=== PATIENT | female | born 2000 | race Caucasian/White ===

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

== ENCOUNTER 2019-06-01 22:53 | Inpatient (IN) | payer MEDICAID ==
[2019-06-01 23:35] LABS: APPEARANCE,URINE SLIGHTLY-CLOUDY; BILIRUBIN,URINE NEGATIVE (NEGATIVE); COLOR,URINE STRAW; GLUCOSE, URINE 50 mg/dL (NEGATIVE); KETONES,URINE NEGATIVE (NEGATIVE); LEUKOCYTE ESTERASE,URINE NEGATIVE (NEGATIVE); NITRITE,URINE NEGATIVE (NEGATIVE); PROTEIN,URINE NEGATIVE (NEGATIVE); URINE SPECIFIC GRAVITY 1.004; UROBILINOGEN,URINE NEGATIVE mg/dL (<2.0)
[2019-06-01 23:58] LABS: URINE AMPHETAMINES SCREEN NEGATIVE; URINE BARBITURATES SCREEN NEGATIVE; URINE BENZODIAZEPINES SCREEN NEGATIVE; URINE COCAINE SCREEN NEGATIVE; URINE MARIJUANA (THC) SCREEN NEGATIVE; URINE METHADONE SCREEN NEGATIVE; URINE PHENCYCLIDINE SCREEN NEGATIVE
[2019-06-02] MEDS ORDERED: MISOPROSTOL 0.2 MG TABLET ONE (01:52)
[2019-06-02] MEDS ORDERED: OXYTOCIN 10 UNIT/ML VIAL ONE (01:52)
[2019-06-02] MEDS ORDERED: LIDOCAINE 1% INJ-PF (10 MG/ML) 30 ML SDV ONE (01:52)
[2019-06-02] MEDS ORDERED: OXYTOCIN/NORMAL SALINE 20 UNIT/1,000 ML RTUINJ ONE (01:52)
[2019-06-02] MEDS ORDERED: PENICILLIN G-K 5 MILLION UNIT VIAL ONE (01:53)
[2019-06-02] MEDS ORDERED: RINGERS SOLUTION,LACTATED 1,000 ML IV PRN (01:56)
[2019-06-02] MEDS ORDERED: PENICILLIN G POTASSIUM 5,000,000 UNIT in DEXTROSE 5%-WATER 100 ML IV ONE (02:00)
[2019-06-02] MEDS ORDERED: PROMETHAZINE HCL INJ 25 MG/1 ML VIAL ONE (02:10)
[2019-06-02] MEDS ORDERED: NALBUPHINE HCL INJ 10 MG/1 ML AMPULE ONE (02:10)
[2019-06-02 02:20] LABS: ABSOLUTE BASOPHILS # (AUTO) 0.1 10^3/uL (0.0-0.2); ABSOLUTE EOSINOPHILS # (AUTO) 0.1 10^3/uL (0.0-0.6); ABSOLUTE LYMPHOCYTES (AUTO) 2.5 10^3/uL (0.5-4.7); ABSOLUTE MONOCYTES (AUTO) 1.3 10^3/uL (0.1-1.4); ABSOLUTE NEUT (AUTO) 15.2 10^3/uL (1.7-8.2); BASOPHILS % (AUTO) 0.3 % (0-2); EOSINOPHILS % (AUTO) 0.5 % (0-6); HEMATOCRIT 28.7 % (36.0-47.0); LYMPHOCYTES % (AUTO) 13.1 % (13-45); MEAN CORPUSCULAR HGB CONC 31.2 g/dL (32.0-36.0); MEAN CORPUSCULAR VOLUME 70 fl (80-97); MONOCYTES % (AUTO) 6.8 % (3-13); PLATELET COUNT 390 10^3/uL (150-450); RED BLOOD COUNT 4.09 10^6/uL (3.72-5.28); RED CELL DISTRIBUTION WIDTH 20.4 % (11.5-14.0); SEGMENTED NEUTROPHILS % (AUTO) 79.3 % (42-78); TOTAL CELLS COUNTED % (AUTO) 100 %; WHITE BLOOD COUNT 19.2 10^3/uL (4.0-10.5)
[2019-06-02] MEDS ORDERED: NALBUPHINE HCL INJ 10 MG/1 ML AMPULE INJ ONE (03:00)
[2019-06-02] MEDS ORDERED: PROMETHAZINE HCL INJ 25 MG/1 ML VIAL IV ONE (03:00)
--- NOTE | 2019-06-02 03:50 | Admission Physical ---
Datetime Report Generated by CPN: 06/02/2019 03:49 CURRENT ADMISSION Chief Complaint: Uterine Contractions Indication for Induction: Not Applicable Admit Impression : Term, Intrauterine ; Active Labor Admit Plan: Admit to Unit; Initiate Labor Protocol ALLERGIES Medication Allergies: No Medication Allergies: No Known Allergies (06/01/2019) Latex: No Latex Allergies Food Allergies: none Environmental Allergies: none OBSTETRICAL HISTORY EDC: 06/03/2019 00:00 : 1 Para: 0 Gestational Diabetes: No Rh Sensitization: No Incompetent Cervix: No JEAN: No Infertility: No ART Treatment: No Uterine Anomaly: No IUGR: No Hx Previous C/S: No Macrosomia: No Hx Loss/Stillborn: No PIH: No Hx : No Placenta Previa/Abruption: No Depression/PP Depression: No PTL/PROM: No Post Hemorrhage: No Obstetrical History Comments: G1- current SEE RECORDS Alcohol: No Marijuana : No Cocaine: No Other Illicit Drugs: No Cigarettes: Former Smoker. 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 Heart Disease: No Hosp/Surgery: No Autoimmune Disorder: No Anesthetic Complications: No Kidney Disease: No Abnormal Pap Smear: No Neuro/Epilepsy: No Psychiatric Disorders: No Other Medical Diseases: No Hepatitis/Liver Disease: No Significant Family History: No Varicosities/Phlebitis: No Trauma/Violence : No Thyroid Dysfunction: No Medical History Comments: wisdom teeth (2014) INFECTIOUS HISTORY Gonorrhea: No Genital Herpes: No Chlamydia: No Tuberculosis: No Syphilis: No Hepatitis: No HIV/AIDS Exposure: No Rash or Viral Illness: No HPV: No PHYSICAL EXAM General: Normal HEENT: Normal Neurologic: Normal Thyroid: Normal Heart: Normal Lungs: Normal Breast: Normal Back: Normal Abdomen: Normal Genitourinary Exam: Normal Extremities: Normal DTRs: Normal Pelvic Type: Adequate Vital Signs: Reviewed; Within Normal Limits VAGINAL EXAM Dilatation: 3 Effacement: 75 Station: -3 Contraction Comments: irregular MEMBRANES Membranes: Intact FETUS A EGA: 39.6 Monitoring: External US FHR- Baseline: 120s Variability: Moderate 6-25bpm Accelerations: 15X15 Decelerations: None FHR Category: Category I Admit Comment: G1 presents to L_D c/o ctx. She is GBS Pos. She reports good movement. PLANS FOR LABOR AND DELIVERY Labor and Delivery: None Pain Management: Epidural Feeding Preference: Breast Benefit of Breast Feed Discussed: Yes Circumcision: N/A INFORMED CONSENT Signature: with User ID: [email or web address]
[2019-06-02] MEDS ORDERED: DIPH/PERTUSS(ACELL)/TETANUS VAC/PF 0.5 ML SYR (>=10YO) IM PRN (04:38)
[2019-06-02] MEDS ORDERED: DIBUCAINE 1% OINTMENT 56 GM TP PRN (04:38)
[2019-06-02] MEDS ORDERED: ACETAMINOPHEN WITH CODEINE #3 TABLET PO PRN (04:38)
[2019-06-02] MEDS ORDERED: ZOLPIDEM TARTRATE 5 MG TABLET PO PRN (04:38)
[2019-06-02] MEDS ORDERED: BENZOCAINE/MENTHOL AEROSOL SPRAY 56 ML TOP PRN (04:38)
[2019-06-02] MEDS ORDERED: OXYTOCIN/NORMAL SALINE 20 UNIT/1,000 ML RTUINJ IV PRN (04:38)
--- NOTE | 2019-06-02 05:20 | Warning Signs in Babies ---
VOD Warning Signs Datetime Report Generated by [facility]: 06/02/2019 05:20 VOD#608 -Warning Signs in Babies: Viewed with Parent(s)/Family (06/02/2019 05:15:Harish Perez RN)
--- NOTE | 2019-06-02 05:25 | Warning Signs in Babies ---
VOD Warning Signs Datetime Report Generated by [facility]: 06/02/2019 05:25 VOD#608 -Warning Signs in Babies: Viewed with Parent(s)/Family (06/01/2019 23:31:Harish Perez RN)
[2019-06-02] MEDS ORDERED: PENICILLIN G POTASSIUM 2,500,000 UNIT in DEXTROSE 5%-WATER 50 ML IV SCH (06:00)
[2019-06-02] MEDS ORDERED: IRON SUCROSE COMPLEX INJ/PF 100 MG/5 ML SDV IV ONE (09:00)
[2019-06-02] MEDS: FERROUS SULFATE 325 MG TABLET PO SCH ×2 (10:58→17:57)
[2019-06-02] MEDS: PRENATAL VITAMIN W DHA CAPSULE PO SCH (10:58)
[2019-06-02] MEDS: SENNOSIDES/DOCUSATE 8.6-50 MG 1 EACH TABLET PO SCH (10:58)
[2019-06-02] MEDS: DOCUSATE SODIUM 100 MG CAPSULE PO SCH ×2 (10:59→17:57)
[2019-06-02] MEDS: ACETAMINOPHEN WITH CODEINE #3 TABLET PO PRN (11:02)
--- NOTE | 2019-06-02 11:51 | PDOC PROGRESS REPORT ---
Subjective-OB Progress Note for:: 06/02/19 Physical Exam (OB) Vital Signs: Temp Pulse Resp BP Pulse Ox 98.2 F 99 18 111/48 L 98 06/02/19 07:41 06/02/19 07:41 06/02/19 07:41 06/02/19 07:41 06/02/19 07:41 Intake & Output 06/01/19 06/02/19 06/03/19 06:59 06:59 06:59 Weight 101.7 kg - PIH/Pre-Eclampsia DTR's: 2 + Clonus: Negative Headache: Absent Epigastric Pain: No Visual Changes: No - Lochia Lochia Amount: Moderate 25-50 ml Lochia Color: Rubra/Red - Abdomen Description: Soft, Round Hernia Present: No Bowel Sounds: Normoactive Flatus Presence: Absent Stool: No Fundal Description: Firm, Midline Fundal Height: u/u - u/2 Objective-Diagnostic Laboratory: 06/02/19 02:08 06/01/19 06/02/19 06/02/19 23:05 02:08 02:08 WBC 19.2 H RBC 4.09 Hgb 9.0 L Hct 28.7 L MCV 70 L MCH 22.0 L MCHC 31.2 L RDW 20.4 H Plt Count 390 Seg Neutrophils % 79.3 H Urine Color STRAW Urine Appearance SLIGHTLY-CLOUDY Urine pH 6.0 Ur Specific Lynn 1.004 Urine Protein NEGATIVE Urine Glucose (UA) 50 H Urine Ketones NEGATIVE Urine Blood NEGATIVE Urine Nitrite NEGATIVE Ur Leukocyte Esterase NEGATIVE Blood Type O POSITIVE Antibody Screen NEGATIVE
[2019-06-02] MEDS: IBUPROFEN 800 MG TABLET PO SCH ×3 (13:50→21:01)
--- NOTE | 2019-06-02 18:18 | Delivery Summary ---
Del Sum A-C Datetime Report Generated by CPN: 06/02/2019 18:18 DELIVERY PERSONNEL DELIVERY PERSONNEL: [id number] Delivery Doctor:: Simona Hunt MD Labor and Delivery Nurse:: Harish Perez RNlead refinery supervisor Nurse:: Anahi Santacruz RN Nursery Nurse:: Madyson Hines RN Department Mgr/INSTRUCTIONAL TECHNOLOGIST: Graciela Ross, ST MATERNAL INFORMATION Delivery Anesthesia: None Medications After Delivery: Pitocin Drip 20 Units/1000ml NSS Delivery QBL: 100 Delivery QBL Comment: 100 Maternal Complications: Precipitous Labor (<3hrs) Provider Comments: of a viable female @ 0405 w/an KATHARINA presentation; APGARS 8, 9; 2nd deg left vag wall lac LABOR SUMMARY EDC: 06/03/2019 00:00 No. Babies in Womb: 1 Attempted: No LABOR INFORMATION Reason for Induction: Not Applicable Onset of Labor: 06/01/2019 19:45 Complete Dilatation: 06/02/2019 03:57 Oxytocin: N/A Group B Beta Strep: positive Antibiotics # of Doses: 1 Antibiotics Time of Last Dose: 0206 Name of Antibiotic Given: PCN Steroids Given: None Reason Steroids Not Administered: Not Applicable MEMBRANES Membranes Rupture Method: Spontaneous Rupture of Membranes: 06/02/2019 03:32 Length of Rupture (hr): 0.55 Amniotic Fluid Color: Light Meconium Amniotic Fluid Amount: Small Amniotic Fluid Odor: Normal STAGES OF LABOR Stage 1 hr: 8 Stage 1 min: 12 Stage 2 hr: 0 Stage 2 min: 8 Stage 3 hr: 0 Stage 3 min: 4 Total Time in Labor hr: 8 Total Time in Labor min: 24 VAGINAL DELIVERY Episiotomy: None Laceration #1: Vaginal Laceration Extension #1: Second Degree Laceration Repair: Yes Laceration Repair Note: 2nd degree left lateral vaginal wall--repaired w/2-0 Vicryl Sponge Count Correct: Yes Sharps Count Correct: Yes CSECTION DELIVERY Primary Indication: N/A Secondary Indication: N/A CSection Incidence: N/A Labor: N/A Elective: N/A CSection Incision: N/A BABY A INFORMATION Delivery Date/Time: 06/02/2019 04:05 Method of Delivery: Vaginal Born in Route : No : N/A Forceps: N/A Vacuum Extraction: N/A Shoulder Dystocia : No PRESENTATION/POSITION BABY A Presentation: Cephalic Cephalic Presentation: Vertex Vertex Position: Right Occipital Anterior Breech Presentation: N/A PLACENTA INFORMATION BABY A Placenta Delivery Time : 06/02/2019 04:09 Placenta Method of Delivery: Spontaneous Placenta Status: Delivered SCORES BABY A Heart Rate 1 min: >100 bpm Resp Effort 1 min: Good Cry Reflex Irritability 1 min: Cough or Sneeze or Pulls Away Muscle Tone 1 min: Active Motion Color 1 min: Blue/Pale Resuscitation Effort 1 min: Tactile Stimulation SCORE 1 MIN: 8 Heart Rate 5 min: >100 bpm Resp Effort 5 min: Good Cry Reflex Irritability 5 min: Cough or Sneeze or Pulls Away Muscle Tone 5 min: Active Motion Color 5 min: Body [place], Extremities Blue SCORE 5 MIN: 9 INFANT INFORMATION BABY A Gestational Age at Delivery: 39.6 Gestational Status: Full Term- 39- 40.6 Weeks Outcome : Liveborn Condition : Stable Infant Sex: Female IDENTIFICATION BABY A Verification Date/Time: 06/02/2019 04:19 ID Band Number: [id number] Mother's Name Verified: Yes Infant RN Verifying : Sharlene Perez RN Additional Verifying Personnel: L Parlor [employer] WEIGHT/LENGTH BABY A Birthweight (gm): 3287 Weight (lb): 7 Infant Weight (oz): 4 Length (in): 18.50 Infant Length (cm): 46.99 CORD INFORMATION BABY A No. Cord Vessels: 3 Nuchal Cord : N/A Cord Blood Taken: Yes-For Eval (Mom's Blood Type - or O+) Infant Suction: None ASSESSMENT BABY A Skin to Skin: Yes BABY B INFORMATION : N/A SIGNATURES Signature: with User ID: [email or web address]
[2019-06-03] MEDS: IBUPROFEN 800 MG TABLET PO SCH ×3 (05:52→22:04)
[2019-06-03 07:48] LABS: HEMATOCRIT 26.5 % (36.0-47.0); HEMOGLOBIN 8.1 g/dL (12.0-15.5); MEAN CORPUSCULAR HEMOGLOBIN 21.7 pg (27.0-33.4); MEAN CORPUSCULAR HGB CONC 30.4 g/dL (32.0-36.0); MEAN CORPUSCULAR VOLUME 71 fl (80-97); PLATELET COUNT 311 10^3/uL (150-450); RED BLOOD COUNT 3.73 10^6/uL (3.72-5.28); RED CELL DISTRIBUTION WIDTH 20.1 % (11.5-14.0); WHITE BLOOD COUNT 15.3 10^3/uL (4.0-10.5)
[2019-06-03] MEDS: PRENATAL VITAMIN W DHA CAPSULE PO SCH (09:43)
[2019-06-03] MEDS: FERROUS SULFATE 325 MG TABLET PO SCH ×2 (09:43→17:13)
[2019-06-03] MEDS: SENNOSIDES/DOCUSATE 8.6-50 MG 1 EACH TABLET PO SCH (09:43)
[2019-06-03] MEDS: DOCUSATE SODIUM 100 MG CAPSULE PO SCH ×2 (09:43→17:13)
[2019-06-03] MEDS: ACETAMINOPHEN WITH CODEINE #3 TABLET PO PRN (09:48)
--- NOTE | 2019-06-03 10:37 | PDOC PROGRESS REPORT ---
Subjective-OB Progress Note for:: 06/03/19 Subjective: Doing well, no c/o Physical Exam (OB) Vital Signs: Temp Pulse Resp BP Pulse Ox 98.3 F 83 16 109/50 L 97 06/03/19 07:37 06/03/19 07:37 06/03/19 07:37 06/03/19 07:37 06/03/19 07:37 Intake & Output 06/02/19 06/03/19 06/04/19 06:59 06:59 06:59 Intake Total 800 Balance 800 Weight 101.7 kg - PIH/Pre-Eclampsia DTR's: 2 + Clonus: Negative Headache: Absent Epigastric Pain: No Visual Changes: No - Lochia Lochia Amount: Scant < 10 ml Lochia Color: Rubra/Red - Abdomen Description: Soft, Flat Hernia Present: No Fundal Description: Firm, Midline Fundal Height: u/u - u/2 Objective-Diagnostic Laboratory: 06/03/19 07:35 06/03/19 07:35 WBC 15.3 H RBC 3.73 Hgb 8.1 L Hct 26.5 L MCV 71 L MCH 21.7 L MCHC 30.4 L RDW 20.1 H Plt Count 311 Assessment and Plan(PN) - Assessment and Plan (1) Positive GBS test Is this a current diagnosis for this admission?: Yes (2) Delivery normal Is this a current diagnosis for this admission?: Yes - Time Spent with Patient Time with patient: Less than 15 minutes Medications reviewed and adjusted accordingly: Yes - Disposition Anticipated Discharge: Home Within: within 24 hours
[2019-06-04] MEDS: ACETAMINOPHEN WITH CODEINE #3 TABLET PO PRN (07:35)
[2019-06-04 09:11] VITALS: BP 126/61
[2019-06-04] MEDS: PRENATAL VITAMIN W DHA CAPSULE PO SCH (09:34)
[2019-06-04] MEDS: FERROUS SULFATE 325 MG TABLET PO SCH (09:34)
[2019-06-04] MEDS: SENNOSIDES/DOCUSATE 8.6-50 MG 1 EACH TABLET PO SCH (09:34)
[2019-06-04] MEDS: DOCUSATE SODIUM 100 MG CAPSULE PO SCH (09:34)
--- NOTE | 2019-06-04 10:19 | PDOC PROGRESS REPORT ---
Subjective-OB Progress Note for:: 06/04/19 Subjective: Doing well, baby not going home today, waiting for GBS tests to come back, Physical Exam (OB) Vital Signs: Temp Pulse Resp BP Pulse Ox 97.5 F 90 14 126/61 H 99 06/04/19 07:53 06/04/19 07:53 06/04/19 07:53 06/04/19 07:53 06/04/19 07:53 Intake & Output 06/03/19 06/04/19 06/05/19 06:59 06:59 06:59 Intake Total 800 Balance 800 - PIH/Pre-Eclampsia DTR's: 2 + Clonus: Negative Headache: Absent Epigastric Pain: No Visual Changes: No - Lochia Lochia Amount: Scant < 10 ml Lochia Color: Rubra/Red - Abdomen Description: Tender, Soft Hernia Present: No Fundal Description: Firm, Midline Fundal Height: u/u - u/2 Objective-Diagnostic Laboratory: 06/03/19 07:35 Assessment and Plan(PN) - Assessment and Plan (1) Positive GBS test Is this a current diagnosis for this admission?: Yes (2) Delivery normal Is this a current diagnosis for this admission?: Yes - Time Spent with Patient Time with patient: Less than 15 minutes Medications reviewed and adjusted accordingly: Yes - Disposition Anticipated Discharge: Home Within: within 24 hours
--- NOTE | 2019-06-04 10:22 | PDOC DISCHARGE SUMMARY ---
Impression - Admit/DC Date/PCP Admission Date/Primary Care Provider: 06/02/19 01:56 GIOVANNA MIKE APRN Discharge Date: 06/04/19 - Discharge Diagnosis (1) Positive GBS test Is this a current diagnosis for this admission?: Yes (2) Delivery normal Is this a current diagnosis for this admission?: Yes (3) Anemia Is this a current diagnosis for this admission?: Yes - Additional Information Resuscitation Status: Full Code Discharge Diet: As Tolerated, Regular Discharge Activity: Activity As Tolerated, Pelvic Rest Referrals: GIOVANNA MIKE APRN [Primary Care Provider] - (RTC 4 weeks, baby not jessica g, will stay as a jah) Home Medications: Butalb/Acetaminophen/Caffeine [Fioricet (50-325-40 mg) Tablet] 1 tab PO Q4HP PRN 06/01/19 Yuj100/Iron Fum/Folic/Docusate [ 19 Tablet] 19 mg PO DAILY 06/01/19 Results Laboratory Results: WBC 15.3 10^3/uL (4.0-10.5) H 06/03/19 07:35 RBC 3.73 10^6/uL (3.72-5.28) 06/03/19 07:35 Hgb 8.1 g/dL (12.0-15.5) L 06/03/19 07:35 Hct 26.5 % (36.0-47.0) L 06/03/19 07:35 MCV 71 fl (80-97) L 06/03/19 07:35 MCH 21.7 pg (27.0-33.4) L 06/03/19 07:35 MCHC 30.4 g/dL (32.0-36.0) L 06/03/19 07:35 RDW 20.1 % (11.5-14.0) H 06/03/19 07:35 Plt Count 311 10^3/uL (150-450) 06/03/19 07:35 Lymph % (Auto) 13.1 % (13-45) 06/02/19 02:08 [place] % (Auto) 6.8 % (3-13) 06/02/19 02:08 Eos % (Auto) 0.5 % (0-6) 06/02/19 02:08 Baso % (Auto) 0.3 % (0-2) 06/02/19 02:08 Absolute Neuts (auto) 15.2 10^3/uL (1.7-8.2) H 06/02/19 02:08 Absolute Lymphs (auto) 2.5 10^3/uL (0.5-4.7) 06/02/19 02:08 Absolute Monos (auto) 1.3 10^3/uL (0.1-1.4) 06/02/19 02:08 Absolute Eos (auto) 0.1 10^3/uL (0.0-0.6) 06/02/19 02:08 Absolute Basos (auto) 0.1 10^3/uL (0.0-0.2) 06/02/19 02:08 Seg Neutrophils % 79.3 % (42-78) H 06/02/19 02:08 Urine Color STRAW 06/01/19 23:05 Urine Appearance SLIGHTLY-CLOUDY 06/01/19 23:05 Urine pH 6.0 (5.0-9.0) 06/01/19 23:05 Ur Specific [place] 1.004 06/01/19 23:05 Urine Protein NEGATIVE mg/dL (NEGATIVE) 06/01/19 23:05 Urine Glucose (UA) 50 mg/dL (NEGATIVE) H 06/01/19 23:05 Urine Ketones NEGATIVE mg/dL (NEGATIVE) 06/01/19 23:05 Urine Blood NEGATIVE (NEGATIVE) 06/01/19 23:05 Urine Nitrite NEGATIVE (NEGATIVE) 06/01/19 23:05 Urine Bilirubin NEGATIVE (NEGATIVE) 06/01/19 23:05 Urine Urobilinogen NEGATIVE mg/dL (<2.0) 06/01/19 23:05 Ur Leukocyte Esterase NEGATIVE (NEGATIVE) 06/01/19 23:05 Urine Ascorbic Acid NEGATIVE (NEGATIVE) 06/01/19 23:05 Urine Opiates Screen NEGATIVE 06/01/19 23:05 Urine Methadone Screen NEGATIVE 06/01/19 23:05 Ur Barbiturates Screen NEGATIVE 06/01/19 23:05 Ur Phencyclidine Scrn NEGATIVE 06/01/19 23:05 Ur Amphetamines Screen NEGATIVE 06/01/19 23:05 U Benzodiazepines Scrn NEGATIVE 06/01/19 23:05 Urine Cocaine Screen NEGATIVE 06/01/19 23:05 U Marijuana (THC) Screen NEGATIVE 06/01/19 23:05 RPR NONREACTIVE (NONREACTIVE) 06/02/19 02:08 Blood Type O POSITIVE 06/02/19 02:08 Antibody Screen NEGATIVE 06/02/19 02:08
--- NOTE | 2019-06-04 10:25 | PDOC DISCHARGE SUMMARY ---
Impression - Admit/DC Date/PCP Admission Date/Primary Care Provider: 06/02/19 01:56 GIOVANNA MIKE APRN Discharge Date: 06/04/19 - Discharge Diagnosis (1) Positive GBS test Is this a current diagnosis for this admission?: Yes (2) Delivery normal Is this a current diagnosis for this admission?: Yes (3) Anemia Is this a current diagnosis for this admission?: Yes - Additional Information Resuscitation Status: Full Code Discharge Diet: As Tolerated, Regular Discharge Activity: Activity As Tolerated, Pelvic Rest Referrals: GIOVANNA MIKE APRN [Primary Care Provider] - (RTC 4 weeks, baby not jessica g, will stay as a jah) Home Medications: Butalb/Acetaminophen/Caffeine [Fioricet (50-325-40 mg) Tablet] 1 tab PO Q4HP PRN 06/01/19 [id number]/Iron Fum/Folic/Docusate [ 19 Tablet] 19 mg PO DAILY 06/01/19 HPI Gestational Age: 39.6 Reason(s) for Admission: Onset of Labor, Group B Strep Positive Procedures: Ultrasound Intrapartum Procedure(s): Spontaneous Vaginal Delivery Intrapartum Procedure Note: Precipitous delivery, female , apgars 8/9, GBS pos Complication(s): Laceration-Vaginal Laceration-Degree: 2nd Hospital Course Hospital Course: no problems, baby staying due to GBS cultures pending Results Laboratory Results: WBC 15.3 10^3/uL (4.0-10.5) H 06/03/19 07:35 RBC 3.73 10^6/uL (3.72-5.28) 06/03/19 07:35 Hgb 8.1 g/dL (12.0-15.5) L 06/03/19 07:35 Hct 26.5 % (36.0-47.0) L 06/03/19 07:35 MCV 71 fl (80-97) L 06/03/19 07:35 MCH 21.7 pg (27.0-33.4) L 06/03/19 07:35 MCHC 30.4 g/dL (32.0-36.0) L 06/03/19 07:35 RDW 20.1 % (11.5-14.0) H 06/03/19 07:35 Plt Count 311 10^3/uL (150-450) 06/03/19 07:35 Lymph % (Auto) 13.1 % (13-45) 06/02/19 02:08 [place] % (Auto) 6.8 % (3-13) 06/02/19 02:08 Eos % (Auto) 0.5 % (0-6) 06/02/19 02:08 Baso % (Auto) 0.3 % (0-2) 06/02/19 02:08 Absolute Neuts (auto) 15.2 10^3/uL (1.7-8.2) H 06/02/19 02:08 Absolute Lymphs (auto) 2.5 10^3/uL (0.5-4.7) 06/02/19 02:08 Absolute Monos (auto) 1.3 10^3/uL (0.1-1.4) 06/02/19 02:08 Absolute Eos (auto) 0.1 10^3/uL (0.0-0.6) 06/02/19 02:08 Absolute Basos (auto) 0.1 10^3/uL (0.0-0.2) 06/02/19 02:08 Seg Neutrophils % 79.3 % (42-78) H 06/02/19 02:08 Urine Color STRAW 06/01/19 23:05 Urine Appearance SLIGHTLY-CLOUDY 06/01/19 23:05 Urine pH 6.0 (5.0-9.0) 06/01/19 23:05 Ur Specific [place] 1.004 06/01/19 23:05 Urine Protein NEGATIVE mg/dL (NEGATIVE) 06/01/19 23:05 Urine Glucose (UA) 50 mg/dL (NEGATIVE) H 06/01/19 23:05 Urine Ketones NEGATIVE mg/dL (NEGATIVE) 06/01/19 23:05 Urine Blood NEGATIVE (NEGATIVE) 06/01/19 23:05 Urine Nitrite NEGATIVE (NEGATIVE) 06/01/19 23:05 Urine Bilirubin NEGATIVE (NEGATIVE) 06/01/19 23:05 Urine Urobilinogen NEGATIVE mg/dL (<2.0) 06/01/19 23:05 Ur Leukocyte Esterase NEGATIVE (NEGATIVE) 06/01/19 23:05 Urine Ascorbic Acid NEGATIVE (NEGATIVE) 06/01/19 23:05 Urine Opiates Screen NEGATIVE 06/01/19 23:05 Urine Methadone Screen NEGATIVE 06/01/19 23:05 Ur Barbiturates Screen NEGATIVE 06/01/19 23:05 Ur Phencyclidine Scrn NEGATIVE 06/01/19 23:05 Ur Amphetamines Screen NEGATIVE 06/01/19 23:05 U Benzodiazepines Scrn NEGATIVE 06/01/19 23:05 Urine Cocaine Screen NEGATIVE 06/01/19 23:05 U Marijuana (THC) Screen NEGATIVE 06/01/19 23:05 RPR NONREACTIVE (NONREACTIVE) 06/02/19 02:08 Blood Type O POSITIVE 06/02/19 02:08 Antibody Screen NEGATIVE 06/02/19 02:08 Plan Health Concerns: none Time Spent: Less than 30 Minutes - Nesting room if available
== END 2019-06-04 12:03 | disposition home or self-care (01) | DRG 807 ==
LOC: LC 22:53 → LR 06-02 01:56 → 2S 06-02 06:19
PROVIDERS: ADMIT Obstetrics & Gynecology; ATTEND Obstetrics & Gynecology
PROC: 10E0XZZ Delivery of Products of Conception, External Approach (ICD-10-PCS; principal; 2019-06-02)
PROC: 0KQM0ZZ Repair Perineum Muscle, Open Approach (ICD-10-PCS; 2019-06-02)
DX: O62.3 Precipitate labor (principal); Z37.0 Single live birth; O77.0 Labor and delivery complicated by meconium in amniotic fluid; O99.824 Streptococcus B carrier state complicating childbirth; O99.02 Anemia complicating childbirth; Z3A.39 39 weeks gestation of pregnancy; Z87.891 Personal history of nicotine dependence
CPT/HCPCS: 36415; 80307; 81005; 85025; 85027; 86592; 86850; 86900; 86901; J1756; J2300; J2540; J2550; J2590; J3490; J7060